=== PATIENT | female | born 1945 | race Two or more races ===

== ENCOUNTER 2022-09-08 10:17 | Inpatient (IN) | payer OTHER ==
[~2022-09-08] VITALS: Ht 149.9 cm; Wt 63.5 kg
[2022-09-08] MEDS ORDERED: ZESTRIL10 M1 PO (11:40)
[2022-09-08] MEDS ORDERED: METFORMIN HCL500 M3 PO (11:40)
== END 2022-09-15 16:53 | disposition home or self-care (01) | DRG 331 ==
LOC: O/R 09-13 05:27 → SURH 09-13 05:27
PROVIDERS: ADMIT Surgery; ATTEND Surgery
PROC: 0DTF4ZZ Resection of Right Large Intestine, Percutaneous Endoscopic Approach (ICD-10-PCS; principal; 2022-09-13 09:00)
DX: C18.2 Malignant neoplasm of ascending colon (principal); R59.0 Localized enlarged lymph nodes